=== PATIENT | male | born 1985 | race American Indian/Alaskan Native ===

== ENCOUNTER 2021-08-01 13:04 | Emergency (ER) | payer SELFPAY ==
[2021-08-01 14:22] VITALS: BP 125/74
[2021-08-01] MEDS ORDERED: IBUPROFEN 600 MG TAB PO ONE (14:22)
--- NOTE | 2021-08-01 14:22 | Emergency Department Report ---
- General Chief Complaint: Fever Stated Complaint: IRREGULAR BREATHING Time Seen by Provider: 08/01/21 13:31 Source: patient Mode of arrival: Ambulatory Limitations: No Limitations - History of Present Illness Initial Comments: 35-year-old male presents to the ER today with complaints of URI/flulike symptoms. Patient states that symptoms started about 3 to 4 days ago. He reports subjective fever, chills, generalized body aches, productive cough and he vomited about 3-4 times last night. He reports decreased appetite and this morning noticed that he has been having some shortness of breath. He reports no wheezing. He reports no chest pain. He denies any rhinorrhea, nasal congestion or sore throat. He states that his father was recently diagnosed with COVID-19. He has not gotten a Covid test since his symptoms started. He reports no additional symptoms at this time. MD Complaint: fever, cough, other (CHILLS, BODY ACHES, SOB) -: days(s) (2) - Related Data Previous Rx's Medication Instructions Recorded Last Taken Type Albuterol Mdi (or & Nicu Only) 2 puff IH QID PRN #8.5 gram 08/01/21 Unknown Rx [ProAir HFA Inhaler] Benzonatate [Tessalon Perles] 100 mg PO Q8HR PRN #30 capsule 08/01/21 Unknown Rx Fluticasone [Flonase] 2 spray NS QDAY #1 bottle 08/01/21 Unknown Rx Ibuprofen [Motrin] 600 mg PO Q8H PRN #30 tablet 08/01/21 Unknown Rx Loratadine [Claritin] 10 mg PO DAILY #30 tablet 08/01/21 Unknown Rx Allergies Allergy/AdvReac Type Severity Reaction Status Date / Time No Known Allergies Allergy Unverified 08/01/21 13:07 ED Review of Systems ROS: Stated complaint: IRREGULAR BREATHING Other details as noted in HPI Comment: All other systems reviewed and negative Constitutional: denies: chills, fever, weakness Eyes: denies: eye pain, eye discharge, vision change ENT: denies: ear pain, throat pain, dental pain, hearing loss, congestion Respiratory: cough, shortness of breath. denies: wheezing Cardiovascular: denies: chest pain, palpitations, dyspnea on exertion, edema, syncope, paroxysmal nocturnal dyspnea Gastrointestinal: denies: abdominal pain, nausea, vomiting, diarrhea, constipation, hematemesis, hematochezia Genitourinary: denies: urgency, dysuria, frequency, hematuria, discharge, testicular pain, testicular mass Musculoskeletal: myalgia. denies: back pain, joint swelling, arthralgia Skin: denies: rash, lesions, change in color, change in hair/nails, pruritus Neurological: denies: headache, weakness, numbness, paresthesias, confusion, abnormal gait, vertigo Psychiatric: denies: anxiety, depression, auditory hallucinations, visual hallucinations, homicidal thoughts, suicidal thoughts Hematological/Lymphatic: denies: easy bleeding, easy bruising, swollen glands ED Past Medical Hx - Medications Home Medications: Home Medications Medication Instructions Recorded Confirmed Last Taken Type Albuterol Mdi (or & Nicu Only) 2 puff IH QID PRN #8.5 gram 08/01/21 Unknown Rx [ProAir HFA Inhaler] Benzonatate [Tessalon Perles] 100 mg PO Q8HR PRN #30 capsule 08/01/21 Unknown Rx Fluticasone [Flonase] 2 spray NS QDAY #1 bottle 08/01/21 Unknown Rx Ibuprofen [Motrin] 600 mg PO Q8H PRN #30 tablet 08/01/21 Unknown Rx Loratadine [Claritin] 10 mg PO DAILY #30 tablet 08/01/21 Unknown Rx ED Physical Exam - General Limitations: No Limitations General appearance: alert, in no apparent distress - Head Head exam: Present: atraumatic, normocephalic, normal inspection, other (Mild diaphoresis noted to the forehead) - Eye Eye exam: Present: normal appearance, PERRL, EOMI Pupils: Present: normal accommodation - ENT ENT exam: Present: normal exam, mucous membranes moist, TM's normal bilaterally - Neck Neck exam: Present: normal inspection, full ROM. Absent: meningismus - Respiratory Respiratory exam: Present: normal lung sounds bilaterally. Absent: respiratory distress, wheezes, rales, rhonchi, stridor - Cardiovascular Cardiovascular Exam: Present: regular rate, normal rhythm, normal heart sounds - GI/Abdominal GI/Abdominal exam: Present: soft. Absent: distended, tenderness, guarding, rebound - Neurological Exam Neurological exam: Present: alert, oriented X3, CN II-XII intact, normal gait - Psychiatric Psychiatric exam: Present: normal affect, normal mood - Skin Skin exam: Present: intact ED Course Vital Signs 08/01/21 13:07 Temperature 99.5 F Pulse Rate 91 H Respiratory 16 Rate Blood Pressure 125/74 O2 Sat by Pulse 96 Oximetry ED Medical Decision Making - Radiology Data Radiology results: report reviewed Patient: ADAL WINCHESTER MR#: [id number] : 1985 Acct:[id number] Age/Sex: 35 / M ADM Date: 08/01/21 Loc: ED Attending Dr: Ordering Physician: MELISSA WILLINGHAM Date of Service: 08/01/21 Procedure(s): XR chest routine 2V Accession Number(s): [id number] cc: MELISSA WILLINGHAM Fluoro Time In Minutes: CHEST 2 VIEWS INDICATION: sob. COMPARISON: None FINDINGS: SUPPORT DEVICES: None. HEART: Within normal limits. LUNGS/PLEURA: Minimal patchy bibasilar airspace disease with otherwise clear lungs. No pneumothorax. ADDITIONAL FINDINGS: None. IMPRESSION: 1. Lung findings as above. Signer Name: Deshawn Espinoza MD Signed: 08/01/2021 2:46 PM Workstation Name: [id number] Transcribed By: JW Dictated By: Deshawn Espinoza MD Electronically Authenticated By: Deshawn Espinoza MD Signed Date/Time: 08/01/211445 DD/ 43 TD/TT: - Medical Decision Making Rapid flu negative. Chest x-ray shows minimal patchy bibasilar airspace disease with otherwise clear lungs. Currently relaxing comfortably in recliner. He is not in any acute pain or respiratory distress. He ambulates well with a normal gait and is not in any distress. He is neurologically intact. He has no meningeal signs on exam. His vital signs are stable including the fact that he is afebrile, not hypoxic, and not tachycardic or tachypneic. No significant adventitious breath sounds heard on exam. He appears hydrated. Discussed results with patient. He was exposed to his that he was COVID-19 positive and I do suspect that his symptoms could be related to COVID-19. I recommended that he gets COVID-19 test once he leaves here today. In the meantime patient will be treated for symptoms. Discussed treatment plan with patient. Recommend follow-up with the primary care doctor but he understands to return to the ER if symptoms worsens in any way. Patient was stable at time of discharge. Critical care attestation.: If time is entered above; I have spent that time in minutes in the direct care of this critically ill patient, excluding procedure time. ED Disposition Clinical Impression: Viral illness, Suspected COVID-19 virus infection Disposition: 01 HOME / SELF CARE / HOMELESS Is pt being admited?: No Does the pt Need Aspirin: No Condition: Stable Instructions: COVID-19, COVID-19: How to Protect Yourself and Others - CDC, Viral Illness, Adult Additional Instructions: You flu test was negative. Your chest xray was normal. Your symptoms are likely related to non specific viral illness but since you were exposed to family member with COVID, I do recommend that you get a COVID-19 test at a local urgent care or pharmacy. In the meantime take the Tessalon Perles to help with cough, use the Flonase and Claritin to help with your URI symptoms. Use the albuterol inhaler to help with any shortness of breath. Take the ibuprofen to help with any body aches or fever and you can alternate with Tylenol. Drink lots of fluids. Take a multivitamin daily that contains vitamin C, zinc and vitamin D. Follow-up closely with your PCP. Return to the ER if symptoms worsens in any way. Prescriptions: Loratadine [Claritin] 10 mg PO DAILY #30 tablet Fluticasone [Flonase] 2 spray NS QDAY #1 bottle Ibuprofen [Motrin] 600 mg PO Q8H PRN #30 tablet PRN Reason: Pain Albuterol Mdi (or & Nicu Only) [ProAir HFA Inhaler] 2 puff IH QID PRN #8.5 gram PRN Reason: Shortness Of Breath Benzonatate [Tessalon Perles] 100 mg PO Q8HR PRN #30 capsule PRN Reason: Cough Referrals: PRIMARY CARE, [Primary Care Provider] - 3-5 Days Forms: Work/School Release Form(ED) Time of Disposition: 15:58
--- NOTE | 2021-08-01 14:49 | XRay Report ---
CHEST 2 VIEWS INDICATION: sob. COMPARISON: None FINDINGS: SUPPORT DEVICES: None. HEART: Within normal limits. LUNGS/PLEURA: Minimal patchy bibasilar airspace disease with otherwise clear lungs. No pneumothorax. ADDITIONAL FINDINGS: None. IMPRESSION: 1. Lung findings as above. Signer Name: Deshawn Espinoza MD Signed: 08/01/2021 2:46 PM Workstation Name: [id number]
== END 2021-08-01 16:05 | disposition home or self-care (01) ==
LOC: ED 13:04
DX: B34.9 Viral infection, unspecified (principal); Z20.822 Contact with and (suspected) exposure to COVID-19
CPT/HCPCS: 71046; 87400; 99283